=== PATIENT | female | born 1950 | race Caucasian/White ===

== ENCOUNTER → 2021-06-22 | Outpatient (CLI) | payer MEDICARE, OTHER ==
[2014-06-07 15:37] VITALS: BP 122/60
[~2021-06-22] MED LIST: ARIP10TA9 PO; BISA-42 PO; CLON1TAB PO; ESTR1.25 PO; IOHEXOL 240 MG/ML 50ML VIAL. ONE; LEVO75TA PO; MIRT-37 PO; PRESTIQUE
--- NOTE | 2021-06-22 15:36 | RAD ---
CT CHEST_ABDOMEN_ AND PELVIS WITHOUT CONTRAST History: Panlobular emphysema. Weight loss, dyspnea. Comparison: None. Technique: CT of the chest, abdomen and pelvis with oral contrast only. Findings: Chest: Devices: None. Pulmonary arteries: Unremarkable. Aorta and great vessels: No aneurysm of the aortic arch or thoracic aorta is seen. Mild atherosclerot ic calcification. Heart: The heart is normal in size. There is no pericardial effusion. Minimal coronary artery calcifi cation. Thyroid: No significant abnormalities. Mediastinum and sowmya: No mediastinal masses or adenopathy is seen. Esophagus: The visualized esophagus is normal. Small sliding hiatal hernia. Airways, Lungs, Pleura: There is a irregular lobular density measuring 2.6 x 2.3 cm extending in the left piriform recess from the anterior visceral space at the level of the hyoid bone, partially withi n the [id number]. Some debris is present at the vallecula. The trachea and bronchi are clear. Mode rate centrilobular emphysema. Mild biapical pleural-parenchymal scarring. No airspace consolidation o r pleural effusion. Soft tissue and osseous: Bilateral breast implants with capsular calcifications. No acute osseous abn ormalities. Abdomen/Pelvis: General abdomen: No intra-abdominal free air. No significant free fluid identified. Liver : Normal in size and attenuation. No masses seen. Gallbladder/Biliary Tree: Partially decompressed, not well visualized gallbladder. No intrahepatic or extrahepatic biliary ductal dilatation. Pancreas: Normal. Spleen: Normal in size and attenuation. Adrenal glands: Normal. Kidneys: No hydronephrosis or hydroureter. No renal masses identified. Gastrointestinal: Small sliding hiatal hernia with wall thickening of the gastroesophageal junction. Diffuse nonspecific mild small bowel distention. Poor soft tissue contrast of the small bowel and col on due to noncontrast technique and lack of intra-abdominal fat. The appendix is not discretely visua lized. Nonspecific wall thickening of the small bowel loops in the pelvis. The contrast appears to re ach the cecum which is in the left pelvis. The proximal ascending colon is not well visualized and mo stly decompressed. There is gaseous distention of the transverse colon. Poorly defined descending and sigmoid colon. Nonspecific gaseous distention and wall thickening of the distal sigmoid and rectum. Lymph nodes: No lymphadenopathy. Vessels: Unremarkable. Pelvic Organs: Suspect hysterectomy. No pelvic masses. The bladder is unremarkable. Soft tissues: Unremarkable. Bones: Decreased osseous mineralization. No acute or aggressive lesion. Impression: 1. Partially visualized irregular lobular mass extending into the left piriform recess from the ante rior visceral space at the level of the hyoid bone in the neck. Recommend ENT consultation and direct visualization. 2. Poor evaluation of the hollow abdominal viscera due to lack of intravenous contrast and intra-abd ominal fat. Mild nonspecific dilation of the small bowel without evidence of obstruction. Nonspecific wall thickening and dilation of the sigmoid colon and rectum. Cannot exclude colonic mass. Recommend correlation with colonoscopy. 3. Small sliding hiatal hernia with wall thickening at the gastroesophageal junction. 4. Moderate emphysema. No acute findings in the lungs. ------ Exposure: One or more of the following individualized dose reduction techniques were utilized for thi s examination: 1. Automated exposure control 2. Adjustment of the mA and/or kV according to patient size 3. Use of iterative reconstruction technique. Electronically signed by: Leonardo Garcia MD (06/22/2021 3:34 PM) [id number]
== END ==
LOC: CT 13:38
PROVIDERS: ATTEND Family Medicine
DX: J43.2 Centrilobular emphysema (principal); K44.9 Diaphragmatic hernia without obstruction or gangrene; I25.10 Atherosclerotic heart disease of native coronary artery without angina pectoris; J98.4 Other disorders of lung; I70.0 Atherosclerosis of aorta; J43.1 Panlobular emphysema; R63.6 Underweight; R06.00 Dyspnea, unspecified; K59.02 Outlet dysfunction constipation; R14.0 Abdominal distension (gaseous)
CPT/HCPCS: 71250; 74176

== ENCOUNTER → 2021-09-07 | Outpatient (CLI) | payer MEDICARE, OTHER ==
[2014-06-07 15:37] VITALS: BP 122/60
[~2021-09-07] MED LIST changes: -IOHEXOL 240 MG/ML 50ML VIAL. ONE
[2021-09-07 16:33] LABS: BASO % 0 % (0-3); EOS # 0.2 x10^3/uL (0.0-0.7); EOS % 2 % (0-3); HEMATOCRIT 49.2 % (36.0-47.0); HEMOGLOBIN 16.6 g/dL (12.0-15.5); LYMPH # 0.5 x10^3/uL (1.0-4.8); LYMPH % 5 % (24-48); MEAN CORPUSCULAR HEMOGLOBIN 31 pg (25-35); MEAN CORPUSCULAR HGB CONC 34 g/dL (31-37); MEAN CORPUSCULAR VOLUME 92 fL (79-100); MONO # 0.6 x10^3/uL (0.0-1.1); MONO % 7 % (0-9); NEUT # 7.6 x10^3uL (1.8-7.7); NEUT % 86 % (31-73); PLATELET COUNT 204 x10^3/uL (140-400); RED BLOOD COUNT 5.34 x10^6/uL (3.50-5.40); RED CELL DISTRIBUTION WIDTH 14.4 % (11.5-14.5); WHITE BLOOD COUNT 8.9 x10^3/uL (4.0-11.0)
[2021-09-07 16:47] LABS: ALBUMIN 2.7 g/dL (3.4-5.0); ALBUMIN/GLOBULIN RATIO 0.6 (1.0-1.7); CALCIUM 8.4 mg/dL (8.5-10.1); CREATININE 1.5 mg/dL (0.6-1.0); GFR 34.4; TOTAL BILIRUBIN 0.5 mg/dL (0.2-1.0); TOTAL PROTEIN 7.1 g/dL (6.4-8.2)
== END ==
LOC: LAB 15:37
PROVIDERS: ATTEND Family Medicine
DX: R63.4 Abnormal weight loss (principal)
CPT/HCPCS: 36415; 80053; 82150; 83690; 85025; 85379

== ENCOUNTER 2021-09-15 16:39 | Emergency (ER) | payer MEDICARE, OTHER ==
[~2021-09-15] VITALS: Ht 175.3 cm; Wt 38.3 kg
[2021-09-15] MEDS ORDERED: IOHEXOL 350 MG/ML 100 ML VIAL. IV ONE (17:15)
[2021-09-15] MEDS ORDERED: IV NORMAL SALINE 500ML 500 ML IV ONE (17:15)
--- NOTE | 2021-09-15 17:15 | PHYS DOC ---
Past History Past Medical History: Anxiety, COPD, Depression (RAMONA SCANLON DO) Past Medical History: Arthritis, Bronchitis Past Medical History polys-colon (PHILIPPE KEARNEY MD) Past Surgical History: Hysterectomy, Other (RAMONA SCANLON DO) Smoking: Quit Less Than 1 Year Alcohol Use: None Drug Use: None (RAMONA SCANLON DO) Adult General Chief Complaint Chief Complaint: SHORTNESS OF BREATH HPI HPI Patient is a 71-year-old female presenting by way of PCP office for imaging studies. Reports she has been at baseline health but reports over past year she has had approximately 15 pounds unintentional weight loss. States she has been covered in outpatient setting by primary care physician and had CT chest abdomen pelvis concerning for neck mass and subsequent abdominal mass in June. Neck mass was subsequently removed by an ENT physician and deemed not cancerous, patient who has had numerous colonoscopies in the past with various polyps that were benign and cancerous has not followed up regarding concerning colonic mass findings. Nonetheless, patient switched primary care physicians and was being seen for chronic cough that started in June without any diagnosable illness, travel or major change in health or home medications. Patient had laboratory studies done in outpatient setting that was concerning for a high D-dimer and so, she was advised to present to our facility for CT angio. On arrival, patient reports she is fatigued, has poor appetite, has no energy, and is short of breath with physical exertion. Admits she is on oral estrogen for hormone replacement but denies any long distance travel or hemoptysis. Does admit prior history of tobacco use stating she smoked a pack a day for years, she reports quitting July 2021. (RAMONA SCANLON DO) Review of Systems Review of Systems Fourteen body systems of review of systems have been reviewed. See HPI for pertinent positives and negative responses, other peacock all other systems are n egative, non-pertinent or non-contributory (RAMONA SCANLON DO) Allergies Allergies Allergies Coded Allergies Type Severity Reaction Last Updated Verified bupropion Adverse Reaction Intermediate 06/07/14 Yes trazodone Adverse Reaction Intermediate 06/07/14 Yes (RAMONA SCANLON DO) Physical Exam Physical Exam Constitutional: Frail, thin, malnourished and overall cachectic in appearance, no acute distress, non-toxic appearance. HENT: Normocephalic, atraumatic, bilateral external ears normal, oropharynx moist, no oral exudates, nose normal. Eyes: PERRLA, EOMI, conjunctiva normal, no discharge. Neck: Normal range of motion, no tenderness, supple, no stridor. Cardiovascular: Heart rate regular, sinus rhythm, no murmurs rubs or gallops Lungs & Thorax: Bilateral breath sounds clear to auscultation Abdomen: Bowel sounds normal, soft, no tenderness, no masses, no pulsatile masses. Nonsurgical abdomen, no peritoneal signs Skin: Warm, dry, no erythema, no rash. Back: No tenderness, no CVA tenderness. Extremities: No tenderness, no cyanosis, no clubbing, ROM intact, no edema. Neurologic: Alert and oriented X 3, grossly normal motor & sensory function, no focal deficits noted. Psychologic: Affect normal, judgement normal, mood normal. (RAMONA SCANLON DO) Current Patient Data Vital Signs Vital Signs Date Time Temp Pulse Resp B/P (MAP) Pulse Ox O2 Delivery O2 Flow Rate FiO2 09/15/21 16:49 97.8 85 16 146/86 (106) 99 Room Air (RAMONA SCANLON DO) EKG EKG EKG ordered and interpreted by myself at 1715 hrs. as sinus rhythm at 81 bpm, unremarkable intervals, no axis deviation, no acute ischemic findings, no STEMI (RAMONA SCANLON DO) Radiology/Procedures Radiology/Procedures [] (RAMONA SCANLON DO) Radiology/[place] [address] IMAGING REPORT Signed PATIENT: DOLORES DAUGHERTY ACCOUNT: [id number] : 1950 LOCATION: ER AGE: 71 SEX: F EXAM STATUS: REG ER ORD. PHYSICIAN: RAMONA SCANLON DO REASON: shob, elevated d dimer OMNI 350 75ML PROCEDURE: CT ANGIO CHEST W ABD PEL W/ Exam: CT of chest, abdomen and pelvis with contrast INDICATION: Shortness of breath TECHNIQUE: Sequential axial images through the chest, abdomen and pelvis obtained following the administration of 75 mL of Isovue-370 IV contrast. Sagittal and coronal reformatted images were reconstructed from the axial data and reviewed. 3-D reformatted images were reconstructed from the axial data and reviewed. Exposure: One or more of the following in the visualized dose reduction techniques were utilized for this examination: 1. Automated exposure control 2. Adjustment of the MA and/or KV according to patient size 3. Use of iterative of reconstructive technique Comparisons: 06/22/2021 FINDINGS: Visual is portions of the thyroid are unremarkable. No enlarged mediastinal lymph nodes are identified. Heart size is normal. No pericardial effusion. Thoracic aorta has normal course and caliber. Pulmonary artery is not enlarged. No pulmonary embolus identified within the main, lobar or segmental pulmonary arteries. Airways are patent. Mild bronchial thickening is noted. There is patchy consolidative changes noted at the periphery of the lungs particularly on the right. There is moderate centrilobular emphysematous change noted at the upper lungs. Several small pulmonary nodules measuring up to 4 mm. Small right pleural effusion. Mild intrahepatic biliary ductal dilatation. Spleen, pancreas, and adrenals are unremarkable. Gallbladder is unremarkable. No perinephric inflammation or hydronephrosis. No renal or ureteral calculi are identified. Bladder is partially distended and not well evaluated. Uterus is nonenlarged. No abnormal adnexal mass. Moderate amount of stool is noted throughout the colon. Mild mucosal hyperenhancement involving loops of small bowel in the lower abdomen. Small amount of free fluid noted diffusely throughout the abdomen. No free intra- abdominal air. Abdominal aorta has normal course and caliber. Abdominal vasculature is patent. No enlarged intra-abdominal lymph nodes are identified. No suspicious osseous lesions or acute fractures. IMPRESSION: 1. No pulmonary embolus identified within the main, lobar or segmental pulmonary arteries. 2. Patchy consolidative changes noted at the periphery of the right lung favored to be infectious or inflammatory in etiology. Follow-up imaging posttreatment to ensure resolution is recommended. 3. Also hyperenhancement involving loops of bowel in the lower abdomen. Findings could relate to enteritis. Correlate with symptomatology. 4. Small amount of free fluid noted throughout the abdomen, may be reactive to the above process. 5. Moderate centrilobular emphysematous change with several small pulmonary nodules measuring up to 4 mm. In a low-risk patient no further follow-up imaging is recommended. In a high-risk patient optional one-year follow-up chest CT can BE performed. Correlate with patient's risk factors to determine the appropriateness for annual lung cancer screening. https://www.uspreventiveservicestaskforce.org/uspstf/recommendation/lung-cancer- screening Electronically signed by: Julio Cesar Ortiz MD (09/15/2021 5:57 PM) [facility] DICTATED AND SIGNED BY: JULIO CESAR ORTIZ MD DATE: 09/15/21 1748 CC: RAMONA SCANLON DO; JASPAL MALONE APRN ~MTH0 0 (PHILIPPE KEARNEY MD) Heart Score C/O Chest Pain: No HEART Score for Chest Pain: HEART Score for Chest Pain Response (Comments) Value History Slighlty/Non-Suspicious 0 ECG Normal 0 Age > 65 2 Risk Factors >3 Risk Factors or Hx CAD 2 Total 4 Risk Factors: Risk Factors: DM, Current or recent (<one month) smoker, HTN, HLP, family history of CAD, obesity. Risk Scores: Risk Factors: DM, Current or recent (<one month) smoker, HTN, HLP, family history of CAD, obesity. (RAMONA SCANLON DO) Course & Med Decision Making Course & Med Decision Making ABCs unremarkable HPI and physical exam obtained without any emergent or surgical issues. With that said, patient who appears cachectic with unintentional weight loss, extensive smoking history, and currently on oral estrogen presents with elevated D-dimer with prior imaging concerning for colonic mass Decision made after I expressed my concern given presenting history of illness to pursue CT chest angio with abdomen pelvis. At this time in care, my shift ended. Comprehensive signout given to Dr. Kearney. Please defer to his documentation regarding future care of patient in ER setting (RAMONA SCANLON DO) Course & Med Decision Making See Dr. Scanlon note prior to shift change. Discussed presentation, testing and tx. plan with Dr. Corbett. Wants to see pt. in office tomorrow. Plan GI and Cardiology consults Impression: 1. CHF - BNP 4,663 2. Renal Insuf. Bun 23/Crea 1.4. 3. Hx of Wt. loss 4. Atypical Pneumonia/Patchy Consolidation Rt. Lung 5. Emphysema Centrilobular 6. Hx. Colon polys- (More than 10 since colonscopic exam- pt has put it off) 7. Enteritis 8. Bilateral Pleural effusions 9. Constipation (PHILIPPE KEARNEY MD) Dragon Disclaimer Dragon Disclaimer This electronic medical record was generated, in whole or in part, using a voice recognition dictation system. (RAMONA SCANLON DO) Departure Departure: Referrals: JASPAL MALONE APRN (PCP) Scripts Furosemide (LASIX) 40 Mg Tablet 40 MG PO DAILY for chf, #30 TAB Prov: PHILIPPE KEARNEY MD 09/15/21 Azithromycin (ZITHROMAX) 250 Mg Tablet 250 MG PO DAILY for ANTI-BIOTIC for 5 Days, #5 TAB 0 Refills Prov: PHILIPPE KEARNEY MD 09/15/21 Dragon Disclaimer This chart was dictated in whole or in part using Voice Recognition software in a busy, high-work load, and often noisy Emergency Department environment. It may contain unintended and wholly unrecognized errors or omissions. (PHILIPPE KEARNEY MD) RAMONA SCANLON DO Sep 15, 2021 17:15 PHILIPPE KEARNEY MD Sep 15, 2021 18:42
--- NOTE | 2021-09-15 17:18 | EKG ---
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
[2021-09-15 17:38] LABS: BASO # 0.1 x10^3/uL (0.0-0.2); BASO % 1 % (0-3); EOS # 0.3 x10^3/uL (0.0-0.7); EOS % 3 % (0-3); HEMATOCRIT 47.3 % (36.0-47.0); HEMOGLOBIN 15.4 g/dL (12.0-15.5); LYMPH # 0.6 x10^3/uL (1.0-4.8); LYMPH % 8 % (24-48); MEAN CORPUSCULAR HEMOGLOBIN 30 pg (25-35); MEAN CORPUSCULAR HGB CONC 33 g/dL (31-37); MEAN CORPUSCULAR VOLUME 93 fL (79-100); MONO # 0.4 x10^3/uL (0.0-1.1); MONO % 4 % (0-9); NEUT # 7.2 x10^3uL (1.8-7.7); NEUT % 84 % (31-73); PLATELET COUNT 363 x10^3/uL (140-400); RED BLOOD COUNT 5.07 x10^6/uL (3.50-5.40); RED CELL DISTRIBUTION WIDTH 14.5 % (11.5-14.5); WHITE BLOOD COUNT 8.5 x10^3/uL (4.0-11.0)
[2021-09-15 17:41] LABS: CALCIUM 8.2 mg/dL (8.5-10.1); CREATININE 1.4 mg/dL (0.6-1.0); GFR 37.3; POTASSIUM 4.9 mmol/L (3.5-5.1)
[2021-09-15 17:43] LABS: INFLUENZA A PATIENT NEGATIVE (NEGATIVE); INFLUENZA B PATIENT NEGATIVE (NEGATIVE)
--- NOTE | 2021-09-15 18:00 | RAD ---
Exam: CT of chest, abdomen and pelvis with contrast INDICATION: Shortness of breath TECHNIQUE: Sequential axial images through the chest, abdomen and pelvis obtained following the admin istration of 75 mL of Isovue-370 IV contrast. Sagittal and coronal reformatted images were reconstruc dayami from the axial data and reviewed. 3-D reformatted images were reconstructed from the axial data a nd reviewed. Exposure: One or more of the following in the visualized dose reduction techniques were utilized for this examination: 1. Automated exposure control 2. Adjustment of the MA and/or KV according to patient size 3. Use of iterative of reconstructive technique Comparisons: 06/22/2021 FINDINGS: Visual is portions of the thyroid are unremarkable. No enlarged mediastinal lymph nodes are identifie d. Heart size is normal. No pericardial effusion. Thoracic aorta has normal course and caliber. Pulmonar y artery is not enlarged. No pulmonary embolus identified within the main, lobar or segmental pulmona ry arteries. Airways are patent. Mild bronchial thickening is noted. There is patchy consolidative changes noted a t the periphery of the lungs particularly on the right. There is moderate centrilobular emphysematous change noted at the upper lungs. Several small pulmonary nodules measuring up to 4 mm. Small right pleural effusion. Mild intrahepatic biliary ductal dilatation. Spleen, pancreas, and adrenals are unremarkable. Gallbla dder is unremarkable. No perinephric inflammation or hydronephrosis. No renal or ureteral calculi are identified. Bladder is partially distended and not well evaluated. Uterus is nonenlarged. No abnormal adnexal mas s. Moderate amount of stool is noted throughout the colon. Mild mucosal hyperenhancement involving loops of small bowel in the lower abdomen. Small amount of free fluid noted diffusely throughout the abdom en. No free intra-abdominal air. Abdominal aorta has normal course and caliber. Abdominal vasculature is patent. No enlarged intra-abdominal lymph nodes are identified. No suspicious osseous lesions or acute fractures. IMPRESSION: 1. No pulmonary embolus identified within the main, lobar or segmental pulmonary arteries. 2. Patchy consolidative changes noted at the periphery of the right lung favored to be infectious or inflammatory in etiology. Follow-up imaging posttreatment to ensure resolution is recommended. 3. Also hyperenhancement involving loops of bowel in the lower abdomen. Findings could relate to ent eritis. Correlate with symptomatology. 4. Small amount of free fluid noted throughout the abdomen, may be reactive to the above process. 5. Moderate centrilobular emphysematous change with several small pulmonary nodules measuring up to 4 mm. In a low-risk patient no further follow-up imaging is recommended. In a high-risk patient optio nal one-year follow-up chest CT can BE performed. Correlate with patient's risk factors to determine the appropriateness for annual lung cancer screening. https://www.uspreventiveservicestaskforce.org/uspstf/recommendation/czkf-phkwap-fkchgijls Electronically signed by: Julio Cesar Kessler MD (09/15/2021 5:57 PM) [facility]
[2021-09-15 18:35] VITALS: BP 155/78
[2021-09-15] MEDS ORDERED: FUROSEMIDE 40 MG/4 ML VIAL IVP ONE (18:45)
[2021-09-15] MEDS ORDERED: AZITHROMYCIN 250 MG TABLET. PO ONE (18:45)
[2021-09-15] MEDS ORDERED: FURO-68 PO (19:16)
[2021-09-15] MEDS ORDERED: AZIT250T PO (19:16)
--- NOTE | 2021-09-15 19:25 | RAD ---
Exam: Chest one view INDICATION: Dyspnea TECHNIQUE: Frontal view of the chest Comparisons: CT same day FINDINGS: The cardiomediastinal silhouette and pulmonary vessels are within normal limits. Right lung base patchy airspace disease. No pleural effusion. IMPRESSION: Right basilar airspace disease. Electronically signed by: Julio Cesar Kessler MD (09/15/2021 7:22 PM) NAIF
[2021-09-15] MEDS ORDERED: ALBUTEROL SULFATE 8GM INHALER. INH ONE (19:30)
== END 2021-09-15 19:49 | disposition home or self-care (01) ==
LOC: ER 16:39
DX: I50.9 Heart failure, unspecified (principal); N28.9 Disorder of kidney and ureter, unspecified; J18.9 Pneumonia, unspecified organism; J43.9 Emphysema, unspecified; K52.9 Noninfective gastroenteritis and colitis, unspecified; J90 Pleural effusion, not elsewhere classified; K59.00 Constipation, unspecified; F41.9 Anxiety disorder, unspecified; F32.9 Major depressive disorder, single episode, unspecified; M19.90 Unspecified osteoarthritis, unspecified site; Z20.822 Contact with and (suspected) exposure to COVID-19; Z87.891 Personal history of nicotine dependence; Z88.8 Allergy status to other drugs, medicaments and biological substances
CPT/HCPCS: 71045; 71275; 74177; 80048; 83880; 84484; 85025; 87428; 93005; 94640; 96361; 96374; 99285; C9803; J1940; J7040; Q9967; U0003; 94664

== ENCOUNTER → 2021-09-28 | Outpatient (CLI) | payer MEDICARE, OTHER ==
[2021-09-15 18:35] VITALS: BP 155/78
[~2021-09-28] MED LIST changes: +AZIT250T PO; +FURO-68 PO
== END ==
LOC: LAB 11:01
PROVIDERS: ATTEND Internal Medicine Gastroenterology
DX: R94.5 Abnormal results of liver function studies (principal)
CPT/HCPCS: 36415; 82977; 83516